=== PATIENT | male | born 1965 | race Two or more races ===

== ENCOUNTER 2017-09-08 07:18 | Day surgery (SDC) | payer OTHER | END 2017-09-08 12:47 | disposition home or self-care (01) | LOC: GIL 07:18 | PROVIDERS: ATTEND Internal Medicine Gastroenterology | DX: Z12.11 Encounter for screening for malignant neoplasm of colon (principal); Z53.9 Procedure and treatment not carried out, unspecified reason ==

== ENCOUNTER 2017-11-29 07:18 | Day surgery (SDC) | END 2017-11-29 11:06 | disposition home or self-care (01) ==